=== PATIENT | female | born 1935 | race Caucasian/White ===

== ENCOUNTER 2018-05-01 08:50 | Day surgery (SDC) | payer MEDICARE, BC ==
[2018-05-01] MEDS ORDERED: ACETAZOLAMIDE 250 MG PO ONE (09:01)
[2018-05-01] MEDS: PROPARACAINE HCL 0.5% OPHTHALMIC SOL ONE ×3 (09:06→10:05)
[2018-05-01] MEDS: KETOROLAC 0.5% OPTH 60 DROP SOL ONE ×2 (09:07→09:19)
[2018-05-01] MEDS: CYCLOPENTOLATE 1% SOL ONE ×2 (09:07→09:19)
[2018-05-01] MEDS: PHENYLEPHRINE HCL 10% OPHTHAL SOL ONE ×2 (09:07→09:19)
[2018-05-01] MEDS ORDERED: MIDAZOLAM 2 MG/2 ML SOL ONE (09:43)
[2018-05-01] MEDS ORDERED: FENTANYL 100MCG/2ML SOL ONE (09:43)
[2018-05-01] MEDS ORDERED: LIDOCAINE HCL 1% MPF 30 SOL ONE (09:59)
[2018-05-01] MEDS ORDERED: IMPRIMIS ONE (09:59)
[2018-05-01] MEDS ORDERED: POVIDONE IODINE 5% SOL ONE (09:59)
[2018-05-01] MEDS ORDERED: BSS 500 ML 500 ML IR ONE (10:00)
[2018-05-01] MEDS ORDERED: OFLOXACIN 0.3% OPHTHAL 1 DROP SOL LEFTEYE ONE (10:28)
[2018-05-01 10:42] VITALS: BP 138/82; PULSE 52; RESP 18; TEMP 97.4; O2SAT 96
== END 2018-05-01 11:02 | disposition home or self-care (01) | DRG 125 ==
LOC: SURG 08:50
PROVIDERS: ATTEND Ophthalmology
DX: H25.89 Other age-related cataract (principal); H40.10X2 Unspecified open-angle glaucoma, moderate stage
CPT/HCPCS: 0191T; 66984; J2250; J3010; A9270-GY; C1783; J2001

== ENCOUNTER 2018-06-05 07:06 | Day surgery (SDC) | payer MEDICARE, BC ==
[~2018-06-05 07:06] MED LIST: ACETAZOLAMIDE 250 MG PO ONE
[2018-06-05] MEDS: PROPARACAINE HCL 0.5% OPHTHALMIC SOL ONE ×3 (07:21→08:16)
[2018-06-05] MEDS: PHENYLEPHRINE HCL 10% OPHTHAL SOL ONE ×2 (07:22→07:33)
[2018-06-05] MEDS: CYCLOPENTOLATE 1% SOL ONE ×2 (07:22→07:34)
[2018-06-05] MEDS: KETOROLAC 0.5% OPTH 60 DROP SOL ONE ×2 (07:22→07:34)
[2018-06-05] MEDS ORDERED: MIDAZOLAM 2 MG/2 ML SOL ONE (07:51)
[2018-06-05] MEDS ORDERED: FENTANYL 100MCG/2ML SOL ONE (07:51)
[2018-06-05] MEDS ORDERED: IMPRIMIS ONE (08:11)
[2018-06-05] MEDS ORDERED: POVIDONE IODINE 5% SOL ONE (08:12)
[2018-06-05] MEDS ORDERED: BSS 500 ML 500 ML IR ONE (08:12)
[2018-06-05] MEDS ORDERED: LIDOCAINE HCL 1% MPF 30 SOL ONE (08:12)
[2018-06-05 08:52] VITALS: BP 132/76; PULSE 61; RESP 20; TEMP 97; O2SAT 95
== END 2018-06-05 09:10 | disposition home or self-care (01) | DRG 125 ==
LOC: SURG 07:06
PROVIDERS: ATTEND Ophthalmology
DX: H25.89 Other age-related cataract (principal); H40.10X2 Unspecified open-angle glaucoma, moderate stage
CPT/HCPCS: 0191T; 66984; J2250; J3010; A9270-GY; C1783; J2001

== ENCOUNTER 2018-11-27 09:24 | Day surgery (SDC) | payer MEDICARE, BC ==
[~2018-11-27 09:24] MED LIST changes: -ACETAZOLAMIDE 250 MG PO ONE; +LIDOCAINE HCL 1% MPF 30 SOL ONE; +PROPOFOL 500 MG/50 ML EMU IV ONE
[2018-11-27 11:47] VITALS: O2SAT 96
[2018-11-27 12:08] VITALS: BP 159/86; PULSE 60; RESP 20; TEMP 97.2
== END 2018-11-27 12:29 | disposition home or self-care (01) | DRG 392 ==
LOC: SURG 09:24
PROVIDERS: ATTEND Internal Medicine Gastroenterology
DX: R13.10 Dysphagia, unspecified (principal); K21.9 Gastro-esophageal reflux disease without esophagitis; K22.2 Esophageal obstruction; K31.89 Other diseases of stomach and duodenum; K44.9 Diaphragmatic hernia without obstruction or gangrene; L53.9 Erythematous condition, unspecified
CPT/HCPCS: J2001; J2704

== ENCOUNTER 2019-02-25 16:39 | Emergency (ER) | payer MEDICARE, BC ==
[2019-02-25] MEDS ORDERED: SODIUM CHLORIDE 0.9% FLUSH 10 ML SOL IV PRN (16:54)
[2019-02-25 16:58] VITALS: TEMP 97.6
[2019-02-25 17:09] LABS: BASOPHILS % (AUTO) 1 % (0-3); EOSINOPHILS % (AUTO) 4 % (0-9); HEMATOCRIT 41 % (35-47); HEMOGLOBIN 13.2 gm/dl (12.0-15.5); LYMPHOCYTES % (AUTO) 31.2 % (10-50); MEAN CORPUSCULAR HEMOGLOBIN 28.9 pg (27.0-32.0); MEAN CORPUSCULAR VOLUME 90 fL (81-99); MONOCYTES % (AUTO) 11.4 % (0-12); NEUTROPHILS % (AUTO) 52.8 % (37-80)
[2019-02-25 17:12] VITALS: RESP 16; O2SAT 95
[2019-02-25 17:19] LABS: INR 0.97 (0.87-1.13)
[2019-02-25 17:25] LABS: BLOOD UREA NITROGEN 16 mg/dl (7-18); CALCIUM 8.8 mg/dl (8.5-10.1); CARBON DIOXIDE 26.9 mEq/L (21-32); CHLORIDE 104 mMol/L (98-107); CREATININE 0.94 mg/dl (0.60-1.00); GLUCOSE 95 mg/dl (74-106); TROP I < 0.017 ng/ml (0.000-0.056)
[2019-02-25 18:16] LABS: APPEARANCE,URINE Clear; BILIRUBIN,URINE NEGATIVE (NEGATIVE); COLOR,URINE Yellow; GLUCOSE, URINE (UA) NEGATIVE (NEGATIVE); KETONES,URINE NEGATIVE (NEGATIVE); LEUKOCYTE ESTERASE ,URINE NEGATIVE (NEGATIVE); NITRATE,URINE NEGATIVE (NEGATIVE); OCCULT BLOOD,URINE NEGATIVE (NEG-TRACE); UROBILINOGEN,URINE 0.2 (0.2-1.0 EU)
[2019-02-25 18:24] LABS: BACTERIA NEGATIVE (< 1+); CRYSTALS NEGATIVE (0-3 AVE/HPF); EPITHELIAL CELLS NEGATIVE (SQUAMOUS); RBC,URINE NEGATIVE (0-3AV/HPF); WBC,URINE 0-1 (0-5AV/HPF)
[2019-02-25 18:41] VITALS: BP 131/74; PULSE 68
[2019-02-25] MEDS ORDERED: ASPIRIN 81 MG CHEWABLE CTB PO ONE (18:44)
== END 2019-02-25 19:19 | disposition home or self-care (01) | DRG 69 ==
LOC: ED 16:39
DX: G45.9 Transient cerebral ischemic attack, unspecified (principal); R53.1 Weakness
CPT/HCPCS: 70450; 80048; 81001; 82962; 84484; 85025; 85610; 85730; 93005; 99284; 99291